=== PATIENT | female | born 1955 | race Caucasian/White ===

== ENCOUNTER 2023-05-28 13:38 | Outpatient (CLI) | payer MEDICARE, SELFPAY ==
--- NOTE | 2023-05-29 08:47 | WPDPFTINT ---
PFT Procedure Performed PFT Procedure Performed Spirometry with Pre/Post Bronchodilator Plethysmography (Lung Vol) Diffusing Cap (DLCO) Flow Vol Loop PFT Interpretation Lung volumes were measured with the body plethysmography method. Lung volumes are unremarkable. Spirometry showed normal FVC and FEV1 but diminished FEV1/FVC ratio 58%, indicative of obstructive airway disease. Following administration of a bronchodilator there was no significant increase in the expiratory flow rates. Lung diffusion capacity is moderately reduced at 48% predicted. The diminished lung diffusion capacity in conjunction with a low alveolar volume and low DLCO/VA ratio may suggest loss of alveolar-capillary structure as occurs in early emphysema or interstitial lung disease. Clinical correlation advised. The flow-volume loop is consistent with obstructive airway disease. Impression: Mild obstructive airway disease. Moderately reduced lung diffusion capacity. Pulmonary function testing was interpreted based on recent ERS/ATS guidelines published in 2021. PFTs play a crucial role in evaluating respiratory function and offering insights into respiratory physiology. However, they may not always accurately diagnose specific clinical conditions. Similarly, normal PFT results do not necessarily rule out the presence of a lung disease or condition. Therefore, the diagnostic utility of PFTs should be approached with caution, as the results in isolation do not yield absolute determinations.
== END 2023-05-28 13:39 | disposition home or self-care (01) ==
LOC: ANHPFT 13:41
DX: C34.12 Malignant neoplasm of upper lobe, left bronchus or lung (principal); R94.2 Abnormal results of pulmonary function studies
CPT/HCPCS: 94060; 94726; 94729